=== PATIENT | male | born 1980 | race Caucasian/White ===

== ENCOUNTER 2017-01-07 09:29 | Day surgery (SDC) | payer BC ==
[~2017-01-07 09:29] MED LIST: Bupivacaine 0.25%/EPINEPHrine 1:200,000 10 ML SDV ONE; Lactated Ringers 1,000 ML IV SCH; ceFAZolin 2 GM in Premix Bag 1 BAG IV ONE
[2017-01-07] MEDS ORDERED: Propofol 200 MG/20 ML SDV ONE (10:00)
[2017-01-07] MEDS ORDERED: Midazolam 1 MG/ML 2 ML SDV ONE (10:00)
[2017-01-07] MEDS ORDERED: Ondansetron 4 MG/2 ML SDV ONE (10:00)
[2017-01-07] MEDS ORDERED: Rocuronium 10 MG/ML 10 ML Syringe ONE (10:00)
[2017-01-07] MEDS ORDERED: Lidocaine 2% 5 ML SDV ONE (10:00)
[2017-01-07] MEDS ORDERED: fentaNYL 100 MCG/2 ML SDV ONE (10:00)
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
[2017-01-07] MEDS ORDERED: Sugammadex Sodium 200 MG/2 ML VIAL ONE (10:56)
[2017-01-07] MEDS ORDERED: ceFAZolin 1 GM Vial ONE (11:11)
[2017-01-07] MEDS ORDERED: Sodium Chloride 0.9% 20 ML ONE (11:11)
[2017-01-07] MEDS ORDERED: Ketorolac 30 MG/ML SDV ONE (11:15)
[2017-01-07] MEDS ORDERED: Desflurane 240 ML Bottle ONE (11:20)
[2017-01-07] MEDS ORDERED: Morphine 10 MG/ML Syringe ONE (12:07)
--- NOTE | 2017-01-07 12:44 | PCM.OPNOTE ---
- General Post-Op/Procedure Note Date of Surgery/Procedure: 01/07/17 Operative Procedure(s): ing hernia rep w mesh, L Findings: Left, very large indirect ing hernia, no direct hernia, repair w medium size plug; [id number] Pre Op Diagnosis: ing hernia L Post-Op Diagnosis: Same Anesthesia Technique: General ET Tube Primary Surgeon: Jeffry Wheeler Pathology: sent sac Complications: None Condition: Good
[2017-01-07] MEDS ORDERED: Acetaminophen/oxyCODONE 325-5 MG Tab PO ONE (12:47)
--- NOTE | 2017-01-07 13:12 | PCM.POSTAN ---
POST ANESTHESIA ASSESSMENT - MENTAL STATUS Mental Status: Alert, Oriented - RESPIRATORY Respiratory Status: Respiratory Rate WNL, Airway Patent, O2 Saturation Stable - CARDIOVASCULAR CV Status: Pulse Rate WNL, Blood Pressure Stable - GASTROINTESTINAL GI Status: No Symptoms - PAIN Pain Score: 3 - POST OP HYDRATION Hydration Status: Adequate & Stable - OBSERVATIONS Free Text/Narrative:: no anesthesia problems
--- NOTE | 2017-01-07 13:29 | OR ---
SURGEON: Jeffry Wheeler MD DATE OF PROCEDURE: 01/07/2017 PREOPERATIVE DIAGNOSIS: Inguinal hernia on the left. POSTOPERATIVE DIAGNOSIS: Inguinal hernia on the left. PROCEDURE PERFORMED: Inguinal hernia repair with mesh. COMPLICATIONS: None. FINDINGS: A very large, bigger than a polyp. No direct hernia. A medium-size plug was used for the repair. PROCEDURE IN DETAIL: The patient was taken to the operating room and placed in the supine position. Upon induction of general endotracheal anesthesia, the patient's groin and inguinal area were prepped and draped in a sterile fashion. The scrotum was placed on top of the drape in case it needed to be maneuvered. An IV antibiotic was given prophylactically and after assessment of appropriate landmark, a transverse incision was made which was right in the middle of the external oblique and the internal oblique and the transverse incision was then carefully taken down past the Jah fascia and exposed the external oblique where the cord is. The external ring was also identified and using a 15 blade, a small saturnino was made right on top of the cord and then using a Metzenbaum scissors, carefully opened up the fiber along its direction all the way to the external ring. The spermatic cord was then carefully lifted up from the inguinal canal. A Stalin drain was then used to hold on to manipulate the cord and carefully dissect out from the inguinal floor. The cremasteric muscle was then opened up. Careful examination of the cord after dissecting the cord, failed to find any hernia sac. There is no indirect hernia. There is a weakening of the inguinal floor, agreed with a direct hernia. Custom fit mesh was then used to reinforce the inguinal floor. The mesh was then anchored down by using 2-0 Prolene stitches to the periosteum of the pubic symphysis, then running down to the lateral aspect of the rectus muscle. The lateral part of the mesh was then anchored to the Anderson ligament, again using 2- 0 Prolene. The last few stitches also anchored the plug to make sure the plug is not migrating. There was one stitch placed at the end of the two tails. Where the cord exits out, a stitch was placed in the two tails to repair the internal ring. Upon conclusion of surgery, I used a finger to make sure the ring is not too tight and not too loose, followed with some irrigation. The external oblique was then repaired by use of 2-0 Vicryl and the recreation external ring was also tested, not too tight, not too loose, followed with 2-0 Vicryl and closed the Jah fascia and the skin stapled to approximate the skin, followed by appropriate dressing. The patient was then awakened, extubated and transferred to recovery room in a hemodynamically stable condition. The patient tolerated the procedure well. There were no intraoperative complications. Dr. Wheeler was present through the whole procedure. Just before surgery, a timeout was called. The patient was identified and procedure identified and procedure started. As always, thank you for the kind referral. KAYLEY / NINFA /[id number]
== END 2017-01-07 14:40 | disposition home or self-care (01) ==
LOC: MW.SDS 09:29
PROVIDERS: ATTEND Surgery
DX: K40.90 Unilateral inguinal hernia, without obstruction or gangrene, not specified as recurrent (principal); F17.210 Nicotine dependence, cigarettes, uncomplicated; Z98.890 Other specified postprocedural states
CPT/HCPCS: 49505; A9270; C9399; J0690; J1885; J2250; J2270; J2405; J3010; J7120; 00830; 88302; C1781; J2704